=== PATIENT | male | born 1965 ===

== ENCOUNTER → 2018-03-10 22:25 | Outpatient (REF) | payer OTHER, SELFPAY ==
[2018-03-10 22:32] LABS: Bacteria Urine None Seen; RBC Urine None Seen (0-5/HPF); WBC Urine None Seen (0-5/HPF)
[2018-03-10 23:00] LABS: Add Manual Diff / Slide Review NO; Basophils Percent Auto 0.7 % (0-2); Eosinophils Percent Auto 2.5 % (2-4); Hematocrit 41.9 % (41-53); Hemoglobin 14.3 g/dL (13.5-17.5); Lymphocytes Percent Auto 30.1 % (25-40); Mean Corpuscular HGB Conc 34.1 % (30-36); Mean Corpuscular Hemoglobin 30.5 PG (26-34); Mean Corpuscular Volume 89.3 fL (80-100); Monocytes Percent Auto 10.5 % (3-14); Neutrophils Absolute Auto 3200 /uL (3000-5900); Neutrophils Percent Auto 56.2 % (50-75); Platelet Count 308 X10^3/uL (150-400); Red Blood Cell Count 4.69 X10^6/uL (4.5-5.9); Red Cell Distribution Width 13.4 % (11.6-14.8); White Blood Cell Count 5.7 X10^3/uL (4.5-11.0)
[2018-03-10 23:10] LABS: Alanine Aminotransferase 29 IU/L (21-72); Albumin 4.5 g/dL (3.5-5.0); Albumin Globulin Ratio 1.4 (1.0-2.8); Alkaline Phosphatase 59 U/L (38-126); Aspartate Aminotransferase 22 IU/L (17-59); Bilirubin Total 1.9 mg/dL (0.2-1.3); Bilirubin Unconjugated 1.4 mg/dL (0.0-1.1); Blood Urea Nitrogen 15 mg/dL (9-20); Calcium 9.1 mg/dL (8.4-10.2); Carbon Dioxide 29 mmol/L (22-32); Chloride 102 mmol/L (98-107); Cholesterol 221 mg/dL (140-199); Estimated Glomerular Filt Rate > 60.0 mL/min (>60); Gamma Glutamyl Transpeptidase 49 U/L (15-73); Globulin 3.2 g/dL (1.7-4.1); Glucose 151 mg/dL (70-100); HDL Cholesterol 52 mg/dL (40-60); HEMOLYSIS < 15 (0-50); Iron 165 ug/dL (49-181); LDL Cholesterol Calculated 136 mg/dL (<100); Phosphorous 4.1 mg/dL (2.5-4.5); Potassium 4.6 mmol/L (3.4-5.1); Sodium 142 mmol/L (137-145); Total Protein 7.7 g/dL (6.3-8.2); Triglycerides 164 mg/dL (35-150)
[2018-03-10 23:19] LABS: Percent Iron Saturation 46 % (20-50); Total Iron Binding Capacity 359 ug/dL (261-462); Transferrin 307 mg/dL (206-381)
[2018-03-10 23:21] LABS: Hemoglobin A1C% w Est Avg Glu 7.8 % (4.0-6.0)
[2018-03-10 23:26] LABS: Free T3, Triiodothyronine Free 4.38 pg/mL (2.77-5.27); Free T4, Direct Thyroxine 1.27 ng/dL (0.78-2.19)
[2018-03-10 23:27] LABS: Vitamin D 25 Hydroxy (D3) 23.9 ng/mL (30.0-100.0)
[2018-03-10 23:38] LABS: Appearance Urine UA CLEAR; Bilirubin Urine UA NEGATIVE (NEGATIVE); Color Urine UA YELLOW; Glucose Urine UA NEGATIVE (Normal); Ketones Urine UA NEGATIVE (NEGATIVE); Leukocyte Esterase Urine UA NEGATIVE (NEGATIVE); Nitrite Urine UA NEGATIVE (Negative); Occult Blood Urine UA NEGATIVE (Negative); Protein Urine UA NEGATIVE (Negative); Specific Gravity Urine UA 1.015 (1.000-1.035); Urobilinogen Urine UA 0.2 E.U./dL (0.2)
[2018-03-10 23:40] LABS: Thyroid Stimulating Hormone 1.32 uIU/mL (0.47-4.68)
[2018-03-10 23:49] LABS: Erythrocyte Sedimentation Rate 5 MM/HR (0-15)
[2018-03-11 01:29] LABS: Culture Indicated Urine Cult Not Indicated; Urine Comments Microscopic Normal
[2018-03-12 13:50] LABS: PSA, Total 0.8 ng/mL (< 4.1)
[2018-03-12 13:51] LABS: Anti Thyroglobulin Antibody < 1 IU/mL (< 2); Thyroid Peroxidase Antibodies 1 IU/mL (< 9)
[2018-03-12 15:28] LABS: Triiodothyronine T3 Total 92 ng/dL (76-181)
== END ==
LOC: LAB 22:25
PROVIDERS: Visit Provider Acupuncturist
DX: Z00.00 Encounter for general adult medical examination without abnormal findings (principal)
CPT/HCPCS: 36415; 80048; 80053; 80061; 80069; 80076; 81001; 82306; 82977; 83036; 83540; 83550; 84153; 84154; 84439; 84443; 84480; 84481; 85025; 85651; 86376; 86800

== ENCOUNTER → 2018-06-19 22:48 | Outpatient (REF) | payer OTHER, SELFPAY ==
[2018-06-19 23:48] LABS: Cholesterol 209 mg/dL (140-199); Glucose 124 mg/dL (70-100); HDL Cholesterol 54 mg/dL (40-60); LDL Cholesterol Calculated 135 mg/dL (<100); Triglycerides 99 mg/dL (35-150)
[2018-06-20 01:03] LABS: Hemoglobin A1C% w Est Avg Glu 6.2 % (4.0-6.0)
[2018-06-23 15:17] LABS: Insulin Level Total 7.1 uIU/mL (2.0-19.6)
== END ==
LOC: LAB 22:48
PROVIDERS: Visit Provider Acupuncturist
DX: E11.65 Type 2 diabetes mellitus with hyperglycemia (principal); E78.5 Hyperlipidemia, unspecified
CPT/HCPCS: 36415; 80061; 82947; 83036; 83525